=== PATIENT | female | born 1980 | race Two or more races ===

== ENCOUNTER 2019-12-24 07:04 | Emergency (ER) | payer BC, SELFPAY ==
[2019-12-24] MEDS ORDERED: IBUPROFEN 400 MG TAB ONE (08:10)
[2019-12-24] MEDS ORDERED: NA CHLORIDE 0.9% 1,000 ML ONE (08:10)
[2019-12-24] MEDS ORDERED: HYDROCODONE/CHLORPHEN 5 ML/OSYR ONE (08:10)
[2019-12-24 08:32] LABS: Urine Blood 2+ (NEG); Urine Glucose NEGATIVE (NEG); Urine Protein NEGATIVE (NEG)
[2019-12-24 08:32] LABS: Absolute Lymphocytes (CBC) 0.8 K/uL (0.7-4.9); Basophils % 0.4 % (0-1.3); Hematocrit 40.7 % (36.0-45.0); Lymphocytes % 9.3 % (15.3-44.8); RBC Red Blood Cell Count 4.79 M/uL (3.86-4.86)
[2019-12-24 08:47] LABS: Potassium 3.4 mmol/L (3.5-5.1)
[2019-12-24 09:01] LABS: Urine Bacteria >50 /HPF (<20); Urine Culture Reflex Order NOT NEEDED
[2019-12-24] MEDS ORDERED: NA CHLORIDE 0.9% 100 ML IV ONE (09:39)
[2019-12-24] MEDS ORDERED: CEFTRIAXONE/SWI 1gm 1 GM/10 ML SYR ONE (09:40)
--- NOTE | 2019-12-24 09:52 | RAD REPORT ---
EXAM DESCRIPTION: RAD - Chest Single View - 12/24/2019 9:43 am CLINICAL HISTORY: Cough;Fever Chest pain. COMPARISON: No comparisons FINDINGS: Portable technique limits examination quality. The lungs are grossly clear. The heart is normal in size. No displaced fractures. IMPRESSION: No acute intrathoracic process suspected.
--- NOTE | 2019-12-24 10:15 | EDPHYS ---
Physician Documentation [facility] Name: Kristal Boewr Age: 39 yrs Sex: Female : 1980 Arrival Date: 12/24/2019 Time: 07:08 Bed 19 Private MD: ED Physician Filemon Holman HPI: 12/23 07:57 This 39 yrs old Female presents to ER via Ambulatory with complaints of Fever. snw 07:57 The patient reports fever, that was measured at 103.5 degrees Fahrenheit. Onset: The snw symptoms/episode began/occurred suddenly, yesterday. Modifying factors: there are no obvious modifying factors. Severity of symptoms: At their worst the symptoms were moderate in the emergency department the symptoms are unchanged. The patient has not experienced similar symptoms in the past. The patient has not recently seen a physician. Historical: - Allergies: 07:19 No Known Allergies; ss - PMHx: 07:19 Asthma; ss - PSHx: 07:19 ectopic ; ; ss - Immunization history:: Adult Immunizations up to date. - Social history:: Smoking status: Patient denies any tobacco usage or history of. ROS: 07:57 Eyes: Negative for injury, pain, redness, and discharge. snw 07:57 Neck: Negative for injury, pain, and swelling, Cardiovascular: Negative for chest pain, palpitations, and edema. 07:57 Abdomen/GI: Negative for abdominal pain, nausea, vomiting, diarrhea, and constipation, Back: Negative for injury and pain, : Negative for injury, bleeding, discharge, and swelling, MS/Extremity: Negative for injury and deformity, Skin: Negative for injury, rash, and discoloration, Neuro: Negative for headache, weakness, numbness, tingling, and seizure. 07:57 Constitutional: Positive for body aches, chills, fever, malaise, poor PO intake. 07:57 ENT: Positive for sore throat. 07:57 Respiratory: Positive for shortness of breath, on exertion. Exam: 07:56 Head/Face: Normocephalic, atraumatic. Eyes: Pupils equal round and reactive to light, snw extra-ocular motions intact. Lids and lashes normal. Conjunctiva and sclera are non-icteric and not injected. Cornea within normal limits. Periorbital areas with no swelling, redness, or edema. ENT: Nares patent. No nasal discharge, no septal abnormalities noted. Tympanic membranes are normal and external auditory canals are clear. Oropharynx with no redness, swelling, or masses, exudates, or evidence of obstruction, uvula midline. Mucous membranes moist. Neck: Trachea midline, no thyromegaly or masses palpated, and no cervical lymphadenopathy. Supple, full range of motion without nuchal rigidity, or vertebral point tenderness. No Meningismus. Chest/axilla: Normal chest wall appearance and motion. Nontender with no deformity. No lesions are appreciated. 07:56 Abdomen/GI: Soft, non-tender, with normal bowel sounds. No distension or tympany. No guarding or rebound. No evidence of tenderness throughout. Back: No spinal tenderness. No costovertebral tenderness. Full range of motion. Skin: Warm, dry with normal turgor. Normal color with no rashes, no lesions, and no evidence of cellulitis. MS/ Extremity: Pulses equal, no cyanosis. Neurovascular intact. Full, normal range of motion. Neuro: Awake and alert, GCS 15, oriented to person, place, time, and situation. Cranial nerves II-XII grossly intact. Motor strength 5/5 in all extremities. Sensory grossly intact. Cerebellar exam normal. Normal gait. Psych: Awake, alert, with orientation to person, place and time. Behavior, mood, and affect are within normal limits. 07:56 Constitutional: The patient appears alert, awake, obviously ill, uncomfortable. 07:56 Cardiovascular: Rate: tachycardic, Rhythm: regular, Pulses: no pulse deficits are appreciated. 07:56 Respiratory: the patient does not display signs of respiratory distress, Respirations: shallow respirations, tachypnea, Breath sounds: are clear throughout. Vital Signs: 07:17 BP 126 / 82; Pulse 126; Resp 16; Temp 103.1(O); Pulse Ox 97% on R/A; Weight 50.8 kg; ss Height 5 ft. 3 in. (160.02 cm); Pain 9/10; 08:19 BP 123 / 81; Pulse 105; Resp 18; Pulse Ox 100% ; bp 09:20 BP 109 / 70; Pulse 101; Resp 19; Temp 100.0; Pulse Ox 99% ; bp 10:33 BP 97 / 64; Pulse 91; Resp 15; Temp 99.7; Pulse Ox 100% ; bp 07:17 Body Mass Index 19.84 (50.80 kg, 160.02 cm) ss MDM: 07:23 Patient medically screened. shobha 10:16 Data reviewed: vital signs, nurses notes. Data interpreted: Pulse oximetry: on room air snw is 99 %. Interpretation: normal. Counseling: I had a detailed discussion with the patient and/or guardian regarding: the historical points, exam findings, and any diagnostic results supporting the discharge/admit diagnosis, lab results, the need for outpatient follow up, for definitive care. Response to treatment: the patient's symptoms have markedly improved after treatment. 12/23 07:36 Order name: Strep; Complete Time: 08:50 snw 12/23 07:36 Order name: Flu; Complete Time: 08:50 snw 12/23 07:36 Order name: COVID-19 snw 12/23 07:36 Order name: Urine Culture snw 12/23 07:36 Order name: Urine Microscopic Only; Complete Time: 09:03 snw 12/23 07:36 Order name: CBC with Diff; Complete Time: 08:43 snw 12/23 07:36 Order name: Chem 7; Complete Time: 08:50 snw 12/23 08:21 Order name: Urine Dipstick--Ancillary (enter results); Complete Time: 08:33 bd 12/23 08:21 Order name: Urine --Ancillary (enter results); Complete Time: 08:33 bd 12/23 08:26 Order name: Chest Single View XRAY; Complete Time: 09:57 snw 12/23 08:49 Order name: Throat Culture EDMS 12/23 07:36 Order name: Urine Test (obtain specimen); Complete Time: 08:20 snw 12/23 07:36 Order name: Urine Dipstick-Ancillary (obtain specimen); Complete Time: 08:20 snw 12/23 09:09 Order name: Recheck VS; Complete Time: 09:38 snw Administered Medications: 08:10 Drug: NS 0.9% 1000 ml Route: IV; Rate: 1 bolus; Site: right antecubital; bp 10:46 Follow up: IV Status: Completed infusion; IV Intake: 1000ml bp 08:10 Drug: Tussionex Pennkinetic ER 5 ml Route: PO; bp 10:46 Follow up: Response: Marked relief of symptoms bp 08:10 Drug: Motrin 600 mg Route: PO; bp 10:46 Follow up: Response: Temperature is decreased bp 09:15 Drug: Rocephin 1 grams Route: IV; Rate: calculated rate; Site: right antecubital; bp 10:46 Follow up: IV Status: Completed infusion; IV Intake: 50ml bp Disposition: 11:02 Co-signature as Attending Physician, Filemon Holman MD I agree with the assessment and [facility] plan of care. Disposition: 12/24/19 10:15 Discharged to Home. Impression: Fever presenting with conditions classified elsewhere, Dehydration, Urinary tract infection, site not specified. - Condition is Stable. - Discharge Instructions: Dehydration, Adult, Fever, Adult, Urinary Tract Infection, Adult, Rehydration, Adult. - Prescriptions for Augmentin 875- 125 mg Oral Tablet - take 1 tablet by ORAL route every 12 hours for 10 days; 20 tablet. orphenadrine citrate 100 mg Oral Tablet Sustained Release - take 1 tablet by ORAL route 2 times per day As needed; 20 tablet. promethazine 25 mg Oral Tablet - take 1 tablet by ORAL route every 6 hours As needed; 20 tablet. - Work release form, Medication Reconciliation Form, Thank You Letter, Antibiotic Education, Prescription Opioid Use form. - Follow up: Emergency Department; When: As needed; Reason: Worsening of condition. Follow up: Private Physician; When: 2 - 3 days; Reason: Recheck today's complaints, Continuance of care, Re-evaluation by your physician. Signatures: Dispatcher [employer] Filemon Toney MD MD cha Waters, Shelly, ARBEN-C QUALITY TECHNICIAN FIBERGLASS-Chlesy Oh RN RN ss Peltier, Brian, RN RN bp Corrections: (The following items were deleted from the chart) 10:50 10:15 12/24/2019 10:15 Discharged to Home. Impression: Fever presenting with conditions bp classified elsewhere; Dehydration; Urinary tract infection, site not specified. Condition is Stable. Forms are Medication Reconciliation Form, Thank You Letter, Antibiotic Education, Prescription Opioid Use. Follow up: Emergency Department; When: As needed; Reason: Worsening of condition. Follow up: Private Physician; When: 2 - 3 days; Reason: Recheck today's complaints, Continuance of care, Re-evaluation by your physician. snw
--- NOTE | 2019-12-24 10:15 | ER ---
Nurse's Notes [facility] Name: Kristal Bower Age: 39 yrs Sex: Female : 1980 Arrival Date: 12/24/2019 Time: 07:08 Bed 19 Private MD: Diagnosis: Fever presenting with conditions classified elsewhere;Dehydration;Urinary tract infection, site not specified Presentation: 12/23 07:17 Chief complaint: Patient states: sore throat, fever and body aches that began ss yesterday. Coronavirus screen: Client denies travel out of the [place] in the last 14 days. fever, muscle pain. Ebola Screen: Patient denies exposure to infectious person. Patient denies travel to an Ebola-affected area in the 21 days before illness onset. Initial Sepsis Screen: Does the patient meet any 2 criteria? HR > 90 bpm. Does the patient have a suspected source of infection? No. Patient's initial sepsis screen is negative. Risk Assessment: Do you want to hurt yourself or someone else? Patient reports no desire to harm self or others. Onset of symptoms was December 23, 2019. 07:17 Method Of Arrival: Ambulatory ss 07:17 Acuity: EVELIO 3 ss Triage Assessment: 07:20 General: Appears distressed, uncomfortable, ill, Behavior is cooperative, appropriate bp for age, anxious. Pain: Complains of pain in SORE THROAT. EENT: Reports pain when swallowing. Neuro: No deficits noted. Cardiovascular: Rhythm is sinus tachycardia. Respiratory: No deficits noted. GI: No signs and/or symptoms were reported involving the gastrointestinal system. : No signs and/or symptoms were reported regarding the genitourinary system. Derm: No deficits noted. Musculoskeletal: No deficits noted. Historical: - Allergies: 07:19 No Known Allergies; ss - PMHx: 07:19 Asthma; ss - PSHx: 07:19 ectopic ; ; ss - Immunization history:: Adult Immunizations up to date. - Social history:: Smoking status: Patient denies any tobacco usage or history of. Screenin:30 Abuse screen: Denies threats or abuse. Denies injuries from another. Nutritional bp screening: No deficits noted. Tuberculosis screening: No symptoms or risk factors identified. Fall Risk None identified. Assessment: 07:20 General: SEE TRIAGE NOTE. bp 08:19 Reassessment: ALL CURRENT ORDERS COMPLETED, IVF INFUSING. bp 09:21 Reassessment: ABX INFUSING, HR CONTINUES TO IMPROVE. bp 10:47 Reassessment: PT D/C HOME AMBULATORY, DX WITH DEHYDRATION AND UTI. bp Vital Signs: 07:17 BP 126 / 82; Pulse 126; Resp 16; Temp 103.1(O); Pulse Ox 97% on R/A; Weight 50.8 kg; ss Height 5 ft. 3 in. (160.02 cm); Pain 9/10; 08:19 BP 123 / 81; Pulse 105; Resp 18; Pulse Ox 100% ; bp 09:20 BP 109 / 70; Pulse 101; Resp 19; Temp 100.0; Pulse Ox 99% ; bp 10:33 BP 97 / 64; Pulse 91; Resp 15; Temp 99.7; Pulse Ox 100% ; bp 07:17 Body Mass Index 19.84 (50.80 kg, 160.02 cm) ED Course: 07:08 Patient arrived in ED. ag5 07:18 Triage completed. ss 07:19 Arm band placed on right wrist. ss 07:23 Filemon Holman MD is Attending Physician. shobha 07:30 Patient has correct armband on for positive identification. Placed in gown. Bed in low bp position. Call light in reach. Side rails up X2. awake overnight monitor on. Pulse ox on. NIBP on. 07:31 Samuel Castillo, RN is Primary Nurse. bp 07:34 Elda Macedo FNP-C is PHCP. snw 08:10 Inserted saline lock: 20 gauge in right antecubital area, using aseptic technique. bp Blood collected. 09:43 Chest Single View XRAY In Process Unspecified. EDMS 10:48 No provider procedures requiring assistance completed. IV discontinued, intact, bp bleeding controlled, No redness/swelling at site. Pressure dressing applied. Administered Medications: 08:10 Drug: NS 0.9% 1000 ml Route: IV; Rate: 1 bolus; Site: right antecubital; bp 10:46 Follow up: IV Status: Completed infusion; IV Intake: 1000ml bp 08:10 Drug: Tussionex Pennkinetic ER 5 ml Route: PO; bp 10:46 Follow up: Response: Marked relief of symptoms bp 08:10 Drug: Motrin 600 mg Route: PO; bp 10:46 Follow up: Response: Temperature is decreased bp 09:15 Drug: Rocephin 1 grams Route: IV; Rate: calculated rate; Site: right antecubital; bp 10:46 Follow up: IV Status: Completed infusion; IV Intake: 50ml bp Intake: 10:46 IV: 1000ml; Total: 1000ml. bp 10:46 IV: 50ml; Total: 1050ml. bp Outcome: 10:15 Discharge ordered by . snw 10:48 Discharged to home ambulatory. bp 10:48 Condition: stable 10:48 Discharge instructions given to patient, Instructed on discharge instructions, follow up and referral plans. medication usage, Demonstrated understanding of instructions, follow-up care, medications, Prescriptions given X 3. 10:50 Patient left the ED. bp Addendum: 12/27/2019 07:58 Addendum: Culture Results: Positive urine culture. No further action required. Bacteria h b sensitive to prescribed antibiotic. Signatures: Dispatcher [employer] EDMS Filemon Holman MD MD cha Waters, Shelly, SECURITIES CLERK-C SECURITIES CLERK-Csnw Chelsy Villegas RN RN Batsheva Portillo RN RN hb Peltier, Brian, RN RN bp Gaskin, Ajare ag5 Corrections: (The following items were deleted from the chart) 12/23 07:20 07:17 Acuity: EVELIO 4 ss ss 09:26 09:20 BP 109 / 70; Pulse 101bpm; Resp 19bpm; Pulse Ox 99%; bp bp
[2019-12-24 11:19] VITALS: BP 97/64; TEMP 99.7; O2SAT 100
== END 2019-12-24 10:50 | disposition home or self-care (01) ==
LOC: ER 07:04
DX: E86.0 Dehydration (principal); Z20.828 Contact with and (suspected) exposure to other viral communicable diseases; N39.0 Urinary tract infection, site not specified
CPT/HCPCS: 36415; 71045; 80048; 81003; 81015; 81025; 85025; 87070; 87077; 87081; 87086; 87088; 87186; 87804; 96361; 96365; 96366; 99284; J0696; J7030; U0002

== ENCOUNTER 2019-12-24 20:04 | Emergency (ER) | payer SELFPAY ==
[2019-12-24] MEDS ORDERED: ACETAMINOPHEN 500 MG TAB ONE (20:29)
[2019-12-24] MEDS ORDERED: ONDANSETRON 4 MG/2 ML VIAL ONE (20:46)
[2019-12-24] MEDS ORDERED: NA CHLORIDE 0.9% 1,000 ML ONE (20:46)
[2019-12-24 21:16] LABS: Absolute Lymphocytes (CBC) 1.1 K/uL (0.7-4.9); Basophils % 0.3 % (0-1.3); Hematocrit 36.2 % (36.0-45.0); Lymphocytes % 12.6 % (15.3-44.8); RBC Red Blood Cell Count 4.29 M/uL (3.86-4.86)
[2019-12-24 21:39] LABS: Potassium 3.3 mmol/L (3.5-5.1)
--- NOTE | 2019-12-24 22:46 | ER ---
Nurse's Notes [facility] Name: Kristal Bower Age: 39 yrs Sex: Female : 1980 Arrival Date: 12/24/2019 Time: 20:06 Bed 6 Private MD: Diagnosis: Fever, unspecified Presentation: 12/23 20:16 Chief complaint: Patient states: "I was tested for COVID today here earlier. I am still jd3 having fevers and I can't get it under control". Coronavirus screen: fever, headache, Client presents with at least one sign or symptom that may indicate coronavirus-19. Standard/surgical mask placed on the client. Provider contacted for isolation considerations. Ebola Screen: Patient negative for fever greater than or equal to 101.5 degrees Fahrenheit, and additional compatible Ebola Virus Disease symptoms. Initial Sepsis Screen: Does the patient meet any 2 criteria? Temp <36.0*C (96.8*F)) or > 38.3*C (100.9*F). HR > 90 bpm. No. Patient's initial sepsis screen is negative. Does the patient have a suspected source of infection? Yes: Productive cough/pneumonia If YES to both, name of provider notified: Filemon CASTRO Risk Assessment: Do you want to hurt yourself or someone else? Patient reports no desire to harm self or others. Note no Motrin or Tylenol since discharge from ER. Onset of symptoms was December 24, 2019. 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 - Social history:: Smoking status: Patient denies any tobacco usage or history of. Screenin:30 Abuse screen: Denies threats or abuse. Denies injuries from another. Nutritional rr5 screening: No deficits noted. Tuberculosis screening: No symptoms or risk factors identified. Fall Risk IV access (20 points). Total Isaac Fall Scale indicates No Risk (0-24 pts). Assessment: 20:30 General: Appears in no apparent distress. uncomfortable, Behavior is calm, cooperative, rr5 appropriate for age, Reports fever for. 20:30 Pain: Complains of pain in head Pain currently is 9 out of 10 on a pain scale. Quality rr5 of pain is described as aching, Pain began gradually, Is intermittent. Neuro: Level of Consciousness is awake, alert, obeys commands, Oriented to person, place, time, situation, Reports headache. Cardiovascular: Capillary refill < 3 seconds Patient's skin is warm and dry. Rhythm is sinus tachycardia. Respiratory: Airway is patent Respiratory effort is even, unlabored, Respiratory pattern is regular, symmetrical. GI: No signs and/or symptoms were reported involving the gastrointestinal system. : No signs and/or symptoms were reported regarding the genitourinary system. EENT: No signs and/or symptoms were reported regarding the EENT system. Derm: Skin is intact, is healthy with good turgor, Skin temperature is warm. Musculoskeletal: Circulation, motion, and sensation intact. Capillary refill < 3 seconds. 21:40 Reassessment: Patient appears in no apparent distress at this time. Patient is alert, rr5 oriented x 3, equal unlabored respirations, skin warm/dry/pink. 22:58 Reassessment: Patient appears in no apparent distress at this time. Patient is alert, rr5 oriented x 3, equal unlabored respirations, skin warm/dry/pink. discharge instruction given and explained without complaints made. Patient states feeling better. Patient states symptoms have improved. Vital Signs: 20:18 BP 109 / 74; Pulse 119; Resp 19 S; Temp 103(A); Pulse Ox 98% on R/A; Weight 50.8 kg jd3 (R); Height 5 ft. 3 in. (160.02 cm) (R); Pain 9/10; 21:30 BP 108 / 67; Pulse 92; Resp 17; Temp 99.2; Pulse Ox 99% ; rr5 22:56 BP 103 / 66; Pulse 75; Resp 16; Temp 98; Pulse Ox 99% ; rr5 20:18 Body Mass Index 19.84 (50.80 kg, 160.02 cm) jd3 ED Course: 20:06 Patient arrived in ED. es 20:07 Bertrand Sommer MD is Attending Physician. 7 20:09 Filemon Pichardo [facility]. cp 20:18 Triage completed. jd3 20:19 Carlos Cespedes RN is Primary Nurse. rr5 20:20 Arm band placed on. jd3 20:30 Patient has correct armband on for positive identification. Placed in gown. Bed in low rr5 position. Call light in reach. ekg monitor on. Pulse ox on. NIBP on. 20:55 Inserted saline lock: 20 gauge in right forearm, using aseptic technique. Blood rr5 collected. 22:58 No provider procedures requiring assistance completed. IV discontinued, intact, rr5 bleeding controlled, No redness/swelling at site. Pressure dressing applied. Administered Medications: 20:20 Drug: Tylenol 1000 mg Route: PO; rr5 21:30 Follow up: Response: No adverse reaction; Temperature is decreased rr5 20:55 Drug: NS 0.9% 1000 ml Route: IV; Rate: 1 bolus; Site: right forearm; rr5 22:02 Follow up: Response: No adverse reaction; IV Status: Completed infusion; IV Intake: rr5 1000ml 20:56 Drug: Zofran (Ondansetron) 4 mg Route: IVP; Site: right forearm; rr5 22:02 Follow up: Response: No adverse reaction rr5 Intake: 22:02 IV: 1000ml; Total: 1000ml. rr5 Outcome: 22:45 Discharge ordered by MD. cp 22:58 Discharged to home ambulatory. rr5 22:58 Condition: stable 22:58 Discharge instructions given to patient, Instructed on discharge instructions, follow up and referral plans. Demonstrated understanding of instructions, follow-up care. 22:58 Patient left the ED. rr5 Signatures: Dora Sauceda Corey, PA PA cp Ti Gonzalez RN RN jd3 Carlos Cespedes, PAVEL RN rr5 Bertrand Sommer MD MD [facility] Corrections: (The following items were deleted from the chart) 20:20 20:16 Initial Sepsis Screen: Does the patient meet any 2 criteria? HR > 90 bpm. No. jd3 Patient's initial sepsis screen is negative. Does the patient have a suspected source of infection? No. Patient's initial sepsis screen is negative. jd3 20:22 20:16 Initial Sepsis Screen: Does the patient meet any 2 criteria? Temp <36.0*C jd3 (96.8*F)) or > 38.3*C (100.9*F). HR > 90 bpm. No. Patient's initial sepsis screen is negative. Does the patient have a suspected source of infection? Yes: Productive cough/pneumonia jd3
--- NOTE | 2019-12-24 22:46 | EDPHYS ---
Physician Documentation [facility] Name: Kristal Bower Age: 39 yrs Sex: Female : 1980 Arrival Date: 12/24/2019 Time: 20:06 Bed 6 Private MD: ED Physician Bertrand Sommer HPI: 12/23 20:52 This 39 yrs old Female presents to ER via Ambulatory with complaints of Fever. cp 20:52 The patient reports fever, with an emergency department temperature of 103 degrees cp Fahrenheit. 20:55 Patient returns to ED after being seen earlier today and reports continued fever. cp Patient admits to not taking any ibuprofen and/or tylenol. Patient was diagnosed with UTI and COVID-19 testing was performed. 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 - Social history:: Smoking status: Patient denies any tobacco usage or history of. ROS: 21:00 Constitutional: Positive for chills, fever, Negative for poor PO intake. cp 21:00 Neck: Negative for pain with movement, pain at rest, stiffness. cp 21:00 Cardiovascular: Negative for chest pain. 21:00 Respiratory: Negative for cough, shortness of breath, wheezing. 21:00 Abdomen/GI: Negative for abdominal pain, vomiting, diarrhea, constipation. 21:00 Back: Negative for pain at rest, pain with movement. 21:00 Skin: Negative for rash. 21:00 Neuro: Negative for altered mental status, headache. 21:00 All other systems are negative. Exam: 20:51 ECG was reviewed by the Attending Physician. cp 21:05 Constitutional: The patient appears in no acute distress, alert, awake, non-toxic, well cp developed, well nourished. 21:05 Head/Face: Normocephalic, atraumatic. cp 21:05 Eyes: Periorbital structures: appear normal, Conjunctiva: normal, no exudate, no injection, Sclera: no appreciated abnormality, Lids and lashes: appear normal, bilaterally. 21:05 ENT: External ear(s): are unremarkable, Nose: is normal, Mouth: Lips: moist, Oral mucosa: moist, Posterior pharynx: Airway: no evidence of obstruction, patent. 21:05 Neck: ROM/movement: is normal, is supple, no meningismus, no nuchal rigidity. 21:05 Chest/axilla: Inspection: normal, Palpation: is normal, no crepitus, no tenderness. 21:05 Cardiovascular: Rate: tachycardic, Rhythm: regular. 21:05 Respiratory: the patient does not display signs of respiratory distress, Respirations: normal, no use of accessory muscles, no retractions, labored breathing, is not present, Breath sounds: are clear throughout, no decreased breath sounds, no stridor, no wheezing. 21:05 Abdomen/GI: Inspection: abdomen appears normal, Palpation: abdomen is soft and non-tender, in all quadrants. 21:05 Back: CVA tenderness, is absent. 21:05 Skin: cellulitis, is not appreciated, no rash present. 21:05 Neuro: Orientation: to person, place \T\ time. Mentation: is normal, Motor: moves all fours, strength is normal. Vital Signs: 20:18 BP 109 / 74; Pulse 119; Resp 19 S; Temp 103(A); Pulse Ox 98% on R/A; Weight 50.8 kg jd3 (R); Height 5 ft. 3 in. (160.02 cm) (R); Pain 9/10; 21:30 BP 108 / 67; Pulse 92; Resp 17; Temp 99.2; Pulse Ox 99% ; rr5 22:56 BP 103 / 66; Pulse 75; Resp 16; Temp 98; Pulse Ox 99% ; rr5 20:18 Body Mass Index 19.84 (50.80 kg, 160.02 cm) jd3 MDM: 20:27 Patient medically screened. cp 21:00 Differential diagnosis: sepsis, COVID-19. cp 22:44 Data reviewed: vital signs, nurses notes, lab test result(s), EKG, and as a result, I cp will discharge patient. 22:44 Counseling: I had a detailed discussion with the patient and/or guardian regarding: the cp historical points, exam findings, and any diagnostic results supporting the discharge/admit diagnosis, lab results, radiology results, to return to the emergency department if symptoms worsen or persist or if there are any questions or concerns that arise at home. Response to treatment: the patient's symptoms have markedly improved after treatment, patient is well hydrated. VSS. Fever resolved. Patient appears non-toxic. Will discharge to home for continued monitoring. Patient instructed on fever control with tylenol and/or ibuprofen and to take previously prescribed meds. 12/23 20:25 Order name: CBC with Diff; Complete Time: 21:36 12/23 21:36 Interpretation: Normal except: MPV 7.0; ANN% 79.2; LYM% 12.6. 12/23 20:25 Order name: BMP; Complete Time: 22:23 12/23 22:24 Interpretation: Normal except: K 3.3; GLUC 110; GFR 75; CA 7.9. 12/23 20:25 Order name: Procalcitonin; Complete Time: 22:43 12/23 22:43 Interpretation: Within normal limits. 12/23 20:25 Order name: IV; Complete Time: 20:56 12/23 20:57 Order name: ECG strip; Complete Time: 20:57 rr5 EC:51 Rate is 105 beats/min. Rhythm is regular. FL interval is normal. QRS interval is cp normal. QT interval is normal. Interpreted by me. Reviewed by me. Administered Medications: 20:20 Drug: Tylenol 1000 mg Route: PO; rr5 21:30 Follow up: Response: No adverse reaction; Temperature is decreased rr5 20:55 Drug: NS 0.9% 1000 ml Route: IV; Rate: 1 bolus; Site: right forearm; rr5 22:02 Follow up: Response: No adverse reaction; IV Status: Completed infusion; IV Intake: rr5 1000ml 20:56 Drug: Zofran (Ondansetron) 4 mg Route: IVP; Site: right forearm; rr5 22:02 Follow up: Response: No adverse reaction rr5 Disposition: 23:00 Chart complete. 12/24 03:34 Co-signature as Attending Physician, Bertrand Sommer MD. [email or web address] Disposition: 12/24/19 22:45 Discharged to Home. Impression: Fever, unspecified. - Condition is Stable. - Discharge Instructions: Fever, Adult. - Medication Reconciliation Form, Thank You Letter, Antibiotic Education, Prescription Opioid Use form. - Follow up: Private Physician; When: 2 - 3 days; Reason: Recheck today's complaints. - Problem is new. - Symptoms have improved. Signatures: Dispatcher [employer] EDMS Filemon Pichardo PA PA cp Ti Gonzalez RN RN jd3 Carlos Cespedes RN RN rr5 Bertrand Sommer MD MD [email or web address] Corrections: (The following items were deleted from the chart) 12/23 22:24 22:24 Normal except: K 3.3; GLUC 110; GFR 75. cp cp 22:58 22:45 12/24/2019 22:45 Discharged to Home. Impression: Fever, unspecified. Condition is rr5 Stable. Forms are Medication Reconciliation Form, Thank You Letter, Antibiotic Education, Prescription Opioid Use. Follow up: Private Physician; When: 2 - 3 days; Reason: Recheck today's complaints. Problem is new. Symptoms have improved. cp
== END 2019-12-24 22:58 | disposition home or self-care (01) ==
LOC: ER 20:04
DX: R50.9 Fever, unspecified (principal)
CPT/HCPCS: 36415; 80048; 84145; 85025; 93005; 96361; 96374; 99284; J2405; J7030